=== PATIENT | male | born 1990 | race Caucasian/White ===

== ENCOUNTER → 2020-09-04 14:12 | Outpatient (CLI) | payer BC, SELFPAY ==
[2020-09-04 15:52] LABS: Coronavirus 19 IgG Antibody Negative (Negative); Coronavirus 19 IgM Antibody Negative (Negative)
== END ==
PROVIDERS: Visit Provider Urology
DX: Z01.812 Encounter for preprocedural laboratory examination (principal); Z11.52 Encounter for screening for COVID-19; Z30.2 Encounter for sterilization
CPT/HCPCS: 36415; 86328

== ENCOUNTER 2020-09-06 07:49 | Day surgery (SDC) | payer BC, SELFPAY ==
[2020-09-06] VITALS (11 sets, daily range): BP systolic 115–148; BP diastolic 61–97; PULSE 79–98; RESP 12–18; TEMP 36.2–37.1; O2SAT 92–98; BMI 36.1
--- NOTE | 2020-09-06 11:02 | HMH.OPNOTE ---
Date of procedure: 09/06/20 Pre-op Diagnosis:: Sterilization Post-op Diagnosis:: Sterilization Procedure performed:: Vasectomy Surgeon:: Donn Kwong MD LIME FILTER OPERATOR:: Other Anesthesia: LMA Estimated blood loss (mL): 2 Clinical Note:: 30-year-old white male previously seen for vasectomy consultation presents for the procedure today. Operative findings:: Scrotal and testicular examination within normal limits. Vasectomy went well without complication. Operative note:: Patient taken to the operating room after informed consent was obtained. Was placed on the operating table in the supine position and monitored anesthesia care was initially performed but this was converted to an elevated. Preoperative antibiotics administered. Patient was prepped and draped in the standard surgical fashion. The left vas was palpated and brought up to the midline raphae. Local anesthetic was placed under the skin and around the left vas. Incision was then made in the midline raphae left vas was grasped with a tenaculum and brought up through the incision. The vasal sheath was incised and the vas proper was brought through the sheath. A clip was placed distally and 2 proximally. A 1 cm segment excised. The ends of the lumen were then cauterized. Hemostasis achieved and the left vas dropped back into the left and hemostasis was achieved.. The right vas was then brought up through the same incision after local anesthetic placed. Identical procedure was performed on the right side. The right vas was dropped back into the scrotum. Stasis achieved. A 3-0 chromic placed in a horizontal mattress fashion in the skin. Sterile dressing applied jockstrap placed. Patient tolerated procedure well. There is minimal blood loss. Condition: stable Disposition: PACU Specimens:: Vas segments were removed but not sent. Complications:: None
--- NOTE | 2020-09-06 12:13 | HMH.ANESCL ---
[facility] Anesthesia Checklist - Patient Identification Patient Identification: Arm Band - Structural Data Admitted From: Home Planned Operative Procedure/s: Vasectomy Consent for Planned Operative Procedure(s) Verified: Yes Verified Documents: Surgical Consent, History and Physical - Additional verifications Anesthesia Reactions: No Hx Blood Transfusions: No Blood Transfusion Reaction: No - Airway Assessment C-Spine Mobility Assessed: Yes TMJ Mobility Assessed: Yes Dentition: Poor Dentition - Neurological Assessment Level of Consciousness: Awake, Alert - Anesthesia Plan Anesthesia Risk discussed: Yes Anesthesia Plan: Verified ASA Class: II Anesthesia Type: General [facility] History Medical History: Reports:: Seizures Denies:: Cancer, Diabetes Mellitus Type 1, Diabetes Mellitus Type 2, Internal Pacemaker, MRSA *Have you ever received a pneumonia vaccine?: No *Have you received a flu vaccine this season?: No Other Medical History: Denies: Blood Transfusion Reaction Anesthesia experience/problems:: None Laterality Cases: Right: Arthroscopy Shoulder, Bilateral: Tonsillectomy Other Surgeries: Yes: No Previous Surgery. No: Pacemaker Amputation: No Fractures: No - *Social History Smoking Status: Current every day smoker Tobacco Type: cigarettes # Packs/Day (cigarettes): 1 Alcohol Intake: current Alcohol Intake Frequency:: holidays/special occasions only Substance Use Type: denies use *Occupational Status:: employed Housing: house Household Members: significant other, family *Travel in the last 8 weeks: None Family Hx:: Cancer, Diabetes, Hypertension
--- NOTE | 2020-09-06 12:15 | P.PN_ITS ---
[facility] Anesthesia Record Part I Intake, IV Amount: 500 Estimated blood loss (mL): 2 Urine output (mL): 0 Blood Pressure: 116/84 SaO2: 92 Pulse Rate: 98 Respiratory Rate: 12 Temperature: 97.7 F Patient is:: Awake, Drowsy Stable to PACU at:: 11:05
--- NOTE | 2020-09-09 08:16 | HMH.ANESII ---
[facility] Anesthesia Record Part II Discharge Time: 11:25 Destination: Surgical Day Care (OP Surgery) PACU nurse assessment reviewed?: Yes Patient Condition:: Good Anesthesia Complications:: None Swallowing reflex intact?: Yes Cyanosis?: No Blood Pressure: 124/63 Pulse Rate: 79 Temperature: 97.1 F Mental Status: Alert & Oriented Pain level:: 0 Nausea and/or vomitting:: None Intake, IV Amount: 0
[2020-09-09 08:17] VITALS: BP 124/63; PULSE 79; TEMP 36.2
== END 2020-09-06 12:15 | disposition home or self-care (01) ==
LOC: OR 07:51
PROVIDERS: PCP Family Medicine; Visit Provider Urology
PROC: (CPT 55250; principal; 2020-09-06 10:00)
DX: Z30.2 Encounter for sterilization (principal); Z72.0 Tobacco use; Z80.9 Family history of malignant neoplasm, unspecified; Z83.3 Family history of diabetes mellitus; Z82.49 Family history of ischemic heart disease and other diseases of the circulatory system; R56.9 Unspecified convulsions
CPT/HCPCS: 55250; 96374; J1956; J2405

== ENCOUNTER → 2021-03-10 09:47 | Outpatient (CLI) | payer BC, SELFPAY | PROVIDERS: PCP Nurse Practitioner Family; Visit Provider Nurse Practitioner | DX: Z20.822 Contact with and (suspected) exposure to COVID-19 (principal) | CPT/HCPCS: C9803; U0003; U0005 ==